=== PATIENT | female | born 1965 | race Caucasian/White ===

== ENCOUNTER 2019-10-07 08:10 | Day surgery (SDC) | payer OTHER ==
[~2019-10-07] VITALS: Ht 167.6 cm; Wt 76.0 kg
[~2019-10-07 08:10] MED LIST: VARE1 PO
[2019-10-07] MEDS ORDERED: METO25ER PO (08:52)
[2019-10-07] MEDS ORDERED: LISI5 PO (08:52)
[2019-10-07] MEDS ORDERED: PROAIR DIGIHAL90 MCG IH (08:52)
[2019-10-07] MEDS ORDERED: FURO20 PO (08:52)
[2019-10-07] MEDS ORDERED: OMEP20ER PO (08:53)
[2019-10-07] MEDS ORDERED: EUTHYROX50 MC1 PO (08:53)
[2019-10-07] MEDS ORDERED: PROG100 PO (08:53)
[2019-10-07] MEDS ORDERED: SALM50IP INH (08:53)
--- NOTE | 2019-10-07 12:15 | NUR ---
TR BAND FULLY DEFLATED, SECOND RN HOLDING PRESSURE TO BRACHIAL VEIN [id number]. NO BLEEDING, OOZING OR HEMATOMA NOTED. PT DENIES PAIN. VSS. WILL CONTINUE TO MONITOR.
--- NOTE | 2019-10-07 13:11 | NUR ---
DISCHARGE TR BAND REMOVED FROM R WRIST. [facility] DOT CUT OUT DUE TO PT ALLERGY TO ADHESIVES AND PLACED OVER SITE AND WRAPPED WITH COBAN. PT EDUCATED THAT WRAP MAY BECOME TIGHTER AND SHOWN HOW TO LOOSEN IF NEEDED. WHITE BOARD PLACED BACK ON R WRIST. IV DCD WITH CATH INTACT. VSS. PT STATES HER UNDERSTANDING OF DC AND SITE CARE INSTRUCTIONS AND DENIES ANY QUESTIONS OR CONCERNS. PT DRESSED SELF WITH NO COMPLICATIONS AND USED RESTROOM. PT TAKEN TO EXIT VIA WHEELCHAIR BY SECOND RN WHERE PTS WAS WAITING WITH CAR.
== END 2019-10-07 13:47 | disposition home or self-care (01) ==
LOC: MHTC 08:10
PROC: B201YZZ Plain Radiography of Multiple Coronary Arteries using Other Contrast (ICD-10-PCS; principal; 2019-10-07)
PROC: 4A023N7 Measurement of Cardiac Sampling and Pressure, Left Heart, Percutaneous Approach (ICD-10-PCS; principal; 2019-10-07)
DX: I11.0 Hypertensive heart disease with heart failure (principal); I50.20 Unspecified systolic (congestive) heart failure; J44.9 Chronic obstructive pulmonary disease, unspecified; F17.210 Nicotine dependence, cigarettes, uncomplicated; I27.20 Pulmonary hypertension, unspecified; Z88.5 Allergy status to narcotic agent; Z88.2 Allergy status to sulfonamides; Z79.899 Other long term (current) drug therapy
CPT/HCPCS: 76937; 93460; 99152; 99153; A9270; C1769; C1894; J1644; J1940; J2250; J3010; J7030; Q9967